=== PATIENT | female | born 1930 | race Caucasian/White ===

== ENCOUNTER 2019-02-22 13:00 | Inpatient (IN) | payer OTHER, MEDICAID ==
[~2019-02-22] VITALS: Ht 165.1 cm; Wt 59.0 kg
[~2019-02-22 13:00] MED LIST: AMLO10TA80; ATOR40TA70 PO; CARB200T PO; DONE5TAB33 PO; FAMO20TA8 PO; VENL-180 PO; XAR15 GT
[2019-02-22] MEDS ORDERED: SODIUM CHLORIDE 0.9% 1,000 ML IV ONE (13:23)
[2019-02-22 15:58] LABS: BASOPHILS % 0.3 % (0.0-2.0); EOSINOPHILS % 0.3 % (0.0-5.0); HEMATOCRIT. 36.8 % (36.0-48.0); HEMOGLOBIN. 12.3 g/dL (12.0-16.0); LYMPHOCYTES % 11.9 % (20.0-50.0); MEAN CORPUSCULAR HEMOGLOBIN 31.3 pg (28.0-32.0); MEAN PLATELET VOLUME 8.7 fl (7.4-10.4); MONOCYTES % 5.5 % (2.0-8.0); PLATELET 183 x1000/uL (130-400); RED BLOOD CELL COUNT 3.92 mill/uL (4.2-5.4)
[2019-02-22 16:02] LABS: CLARITY URINE CLOUDY (CLEAR); COLOR URINE YELLOW (YELLOW); KETONES URINE NEGATIVE (NEGATIVE); LEUKOCYTE ESTERASE URINE TRACE (NEGATIVE); NITRITE URINE NEGATIVE (NEGATIVE); OCCULT BLOOD URINE 1+ (NEGATIVE); PH URINE 7.5 (4.5-8.0); PROTEIN URINE NEGATIVE (NEGATIVE); SPECIFIC GRAVITY URINE 1.004 (1.005-1.030); UROBILINOGEN URINE 0.2 E.U./dL (0.2-1.0)
[2019-02-22 16:05] LABS: CHLORIDE 103 mEq/L (98-107); INR 1.1; PROTHROMBIN TIME 10.7 sec (9.1-11.1)
[2019-02-22] MEDS ORDERED: DOCUSATE SODIUM 100MG CAPSULE PO PRN (18:15)
[2019-02-22] MEDS ORDERED: LORAZEPAM 0.5MG TABLET PO PRN (18:15)
[2019-02-22] MEDS ORDERED: DIPHENHYDRAMINE 50MG/ML VIAL IV PRN (18:15)
[2019-02-22] MEDS ORDERED: ONDANSETRON HCL 4MG/2ML INJ IV PRN (18:15)
[2019-02-22] MEDS ORDERED: IPRATROPIUM/ALBUTEROL 0.5-3(2.5)MG/3ML NEB INH PRN (18:15)
[2019-02-22] MEDS ORDERED: GUAIFENESIN 200MG/10ML SUGAR FREE UDC PO PRN (18:15)
[2019-02-22] MEDS ORDERED: ACETAMINOPHEN 650MG SUPP PR PRN (18:15)
[2019-02-22] MEDS ORDERED: HYDROCODONE/ACETAMINOPHEN 5/325MG TABLET PO PRN (18:15)
[2019-02-22] MEDS ORDERED: CLONIDINE 0.1MG TABLET PO PRN (18:15)
[2019-02-22] MEDS ORDERED: MAGNESIUM/ALUMINUM HYDROXIDE/SIMETHICONE 30ML UDC PO PRN (18:15)
[2019-02-22] MEDS ORDERED: LOSARTAN POTASSIUM 25 MG TABLET PO NR (19:15)
[2019-02-22] MEDS ORDERED: CEFTRIAXONE 1 G PREMIX 50 ML IV SCH (20:00)
[2019-02-22] MEDS ORDERED: NA PHOS,M-B/NA PHOS,DI-BA ENEMA 118ML PR PRN (21:00)
[2019-02-22 22:45] VITALS: BP 145/55
[2019-02-22 23:00] VITALS: BP 177/64
[2019-02-23] VITALS: BP 177/64
[2019-02-23] LABS: CREATINE KINASE MB FRACTION 3.6 ng/mL (0.5-3.6)
[2019-02-23] MEDS: DEXT 5%/0.9% NACL 1,000 ML IV SCH ×2 (00:56→23:26)
[2019-02-23] MEDS: ACETAMINOPHEN 325MG TABLET PO PRN (01:05)
[2019-02-23 04:00] VITALS: BP 91/50
[2019-02-23 08:00] VITALS: BP_SYST 124; BP_DIAS 55; BP_DIAS 70
[2019-02-23 08:15] LABS: BASOPHILS % 0.9 % (0.0-2.0); EOSINOPHILS % 1.9 % (0.0-5.0); HEMATOCRIT. 34.5 % (36.0-48.0); HEMOGLOBIN. 11.5 g/dL (12.0-16.0); LYMPHOCYTES % 33.3 % (20.0-50.0); MEAN CORPUSCULAR HEMOGLOBIN 31.5 pg (28.0-32.0); MEAN CORPUSCULAR VOLUME 94.1 fL (81.0-99.0); MONOCYTES % 10.4 % (2.0-8.0); NEUTROPHILS % 53.5 % (40.0-76.0); PLATELET 171 x1000/uL (130-400); RED BLOOD CELL COUNT 3.66 mill/uL (4.2-5.4); RED CELL DISTRIBUTION WIDTH 14.1 % (11.6-14.6)
[2019-02-23 08:20] LABS: CHLORIDE 103 mEq/L (98-107)
[2019-02-23 08:39] LABS: LDL CHOLESTEROL 68 mg/dL (5-100)
[2019-02-23 08:40] LABS: CREATINE KINASE 64 IU/L (26-192); CREATINE KINASE MB FRACTION 3.2 ng/mL (0.5-3.6)
[2019-02-23 08:41] LABS: HDL CHOLESTEROL 73 mg/dL (40-59); T4 FREE 0.83 ng/dL (0.76-1.46)
[2019-02-23] MEDS: CARVEDILOL 3.125 MG TABLET PO SCH ×2 (09:00→21:00)
[2019-02-23] MEDS ORDERED: RIVA20TA PO (09:17)
[2019-02-23] MEDS ORDERED: BENA40TA9 PO (09:18)
[2019-02-23] MEDS: LOSARTAN POTASSIUM 25 MG TABLET PO SCH (09:26)
[2019-02-23] MEDS: ENOXAPARIN 30MG/0.3ML SYR SUBCUT SCH (09:27)
[2019-02-23] MEDS ORDERED: DEXTROSE 50% WATER 50ML SYRINGE IV PRN ×2 (11:45)
[2019-02-23 12:00] VITALS: BP 112/45
[2019-02-23] MEDS: INSULIN LISPRO 100 UNITS/ML SUBCUT SCH ×3 (12:40→21:00)
[2019-02-23] MEDS: BLOOD SUGAR DIAGNOSTIC STRIP TEST SCH ×3 (12:48→21:18)
[2019-02-23 13:10] LABS: *AMPHETAMINES SCREEN URINE NEGATIVE (NEGATIVE); *BARBITURATES SCREEN URINE NEGATIVE (NEGATIVE); *BENZODIAZEPINES SCREEN URINE NEGATIVE (NEGATIVE); *COCAINE SCREEN URINE NEGATIVE (NEGATIVE)
[2019-02-23 13:11] LABS: CANNABINOID URINE SCREEN NEGATIVE (NEGATIVE); METHADONE URINE SCREEN NEGATIVE (NEGATIVE); OPIATES URINE SCREEN NEGATIVE (NEGATIVE); PHENCYCLIDINE URINE SCREEN NEGATIVE (NEGATIVE)
[2019-02-23] MEDS: ASPIRIN 81MG TABLET PO SCH (14:13)
[2019-02-23 16:00] VITALS: BP 104/45
[2019-02-23 20:00] VITALS: BP 101/49
[2019-02-23] MEDS ORDERED: CEFTRIAXONE 1 G PREMIX 50 ML IV SCH ×2 (20:00)
[2019-02-23] MEDS: LAMOTRIGINE 25MG TABLET PO SCH (23:25)
[2019-02-24] VITALS (8 sets, daily range): BP systolic 96–135; BP diastolic 43–53
[2019-02-24] MEDS ORDERED: LAMO50TA3 PO (02:20)
[2019-02-24] MEDS: CARBAMAZEPINE 200MG TABLET PO SCH ×2 (05:33→14:42)
[2019-02-24] MEDS: ACETAMINOPHEN 325MG TABLET PO PRN (05:34)
[2019-02-24] MEDS: BLOOD SUGAR DIAGNOSTIC STRIP TEST SCH ×4 (06:18→21:18)
[2019-02-24] MEDS: INSULIN LISPRO 100 UNITS/ML SUBCUT SCH ×4 (06:19→21:00)
[2019-02-24] MEDS: CARVEDILOL 3.125 MG TABLET PO SCH ×2 (08:50→21:17)
[2019-02-24] MEDS: ENOXAPARIN 30MG/0.3ML SYR SUBCUT SCH (08:51)
[2019-02-24] MEDS: ASPIRIN 81MG TABLET PO SCH (08:51)
[2019-02-24] MEDS: LOSARTAN POTASSIUM 25 MG TABLET PO SCH (08:51)
[2019-02-24] MEDS ORDERED: IOHEXOL-350 100 ML BOTTLE ONE (16:36)
[2019-02-24] MEDS ORDERED: SULFAMETHOXAZOLE/TRIMETHOPRIM 400/80MG TAB PO SCH (21:00)
[2019-02-24] MEDS: LAMOTRIGINE 25MG TABLET PO SCH (21:17)
== END 2019-02-24 22:25 | disposition home or self-care (01) | DRG 100 ==
LOC: ER 13:05 → EDBEDREQ 13:25 → 8WST 17:04 → EDBEDREQ 17:11 → EDBEDREQTM 17:11 → ENRESERV 19:28 → 8WST 22:46
PROVIDERS: ADMIT Internal Medicine; ATTEND Internal Medicine
PROC: 4B02XSZ Measurement of Cardiac Pacemaker, External Approach (ICD-10-PCS; principal; 2019-02-23)
DX: G40.909 Epilepsy, unspecified, not intractable, without status epilepticus (principal); I50.33 Acute on chronic diastolic (congestive) heart failure; E87.1 Hypo-osmolality and hyponatremia; D68.59 Other primary thrombophilia; N39.0 Urinary tract infection, site not specified; I69.351 Hemiplegia and hemiparesis following cerebral infarction affecting right dominant side; F03.90 Unspecified dementia, unspecified severity, without behavioral disturbance, psychotic disturbance, mood disturbance, and anxiety; E78.5 Hyperlipidemia, unspecified; E11.9 Type 2 diabetes mellitus without complications; I11.0 Hypertensive heart disease with heart failure; I25.10 Atherosclerotic heart disease of native coronary artery without angina pectoris; K57.90 Diverticulosis of intestine, part unspecified, without perforation or abscess without bleeding; K59.00 Constipation, unspecified; B96.20 Unspecified Escherichia coli [E. coli] as the cause of diseases classified elsewhere; Z90.49 Acquired absence of other specified parts of digestive tract; R07.89 Other chest pain; Z79.01 Long term (current) use of anticoagulants; Z82.49 Family history of ischemic heart disease and other diseases of the circulatory system; Z95.0 Presence of cardiac pacemaker; Z79.84 Long term (current) use of oral hypoglycemic drugs
CPT/HCPCS: 36415; 71045; 71275; 74176; 80061; 80305; 82550; 82553; 82962; 83605; 83880; 84439; 84443; 84484; 85379; 87186; 93005; 93306; 93970; 96360; 97162; 97530; 99285; J0696; J1650; J7030; J7042; Q9967